=== PATIENT | female | born 1985 | race African-American/Black ===

== ENCOUNTER 2022-07-20 19:06 | Emergency (ER) | payer OTHER ==
[2022-07-20 19:18] VITALS: BP 129/74; PULSE 84; RESP 18; TEMP 98.8; BMI 37.8
== END 2022-07-20 22:14 | disposition home or self-care (01) ==
LOC: JER 19:06
DX: S91.201A Unspecified open wound of right great toe with damage to nail, initial encounter (principal); M79.674 Pain in right toe(s); Y93.6A Activity, physical games generally associated with school recess, summer camp and children
CPT/HCPCS: 73630-TC-RT-FY; 99283-25

== ENCOUNTER 2023-06-17 13:03 | Emergency (ER) | payer OTHER ==
[2023-06-17 13:15] VITALS: RESP 20; BMI 41.1
[2023-06-17] MEDS ORDERED: ALBUTEROL SO4 0.083% IH SOL 2.5 MG/3 ML VIAL.NEB. NEB ONE (15:03)
[2023-06-17] MEDS: ALBUTEROL SO4 0.042% IH SOL 1.25 MG/3 ML VIAL.NEB NEB ONE (15:15)
[2023-06-17 15:29] LABS: BASO % 1.2 % (0-2.0); EOS % 1.2 % (0-4.5); HEMOGLOBIN 8.2 GM/dL (10.7-15.3); LYMPH % 35.5 % (8-40); MCHC 30.5 g/dl (32.0-36.0); MEAN CELL VOLUME 65.6 fl (80-96); MONO % 8.4 % (3.8-10.2); NEUT % 53.7 % (42.8-82.8); PLATELET COUNT 471 10^3/uL (134-434); RBC 4.11 M/mm3 (3.60-5.2); RDW 18.5 % (11.6-15.6); WHITE BLOOD COUNT 6.6 K/mm3 (4.0-10.0)
[2023-06-17 15:49] LABS: POTASSIUM 4.3 mmol/L (3.5-5.1)
[2023-06-17 15:51] LABS: BLOOD UREA NITROGEN 8.8 mg/dL (7-18); CALCIUM 8.9 mg/dL (8.5-10.1)
[2023-06-17 15:52] LABS: ALBUMIN 3.3 g/dl (3.4-5.0)
[2023-06-17 15:55] LABS: CREATININE 0.9 mg/dL (0.55-1.3)
[2023-06-17 15:56] LABS: BILIRUBIN,TOTAL 0.4 mg/dL (0.2-1); TOT PROT 7.4 g/dl (6.4-8.2)
[2023-06-17 15:58] LABS: ANISOCYTOSIS 1+; MACROCYTOSIS 0
[2023-06-17 15:59] LABS: N-TERMINAL BNP 47.2 pg/ml (5-125)
[2023-06-17 18:34] VITALS: BP 113/68; PULSE 79; TEMP 98.2
[2023-06-17] MEDS ORDERED: predniSONE 20 MG TABLET (UD) ONE (19:27)
[2023-06-17] MEDS: predniSONE 20 MG TABLET (UD) PO ONE (19:32)
== END 2023-06-17 19:32 | disposition home or self-care (01) ==
LOC: JER 13:03
PROC: 3E0F7GC Introduction of Other Therapeutic Substance into Respiratory Tract, Via Natural or Artificial Opening (ICD-10-PCS; principal; 2023-06-17)
DX: R06.02 Shortness of breath (principal); R07.9 Chest pain, unspecified; R05.9 Cough, unspecified; D64.9 Anemia, unspecified; Z20.822 Contact with and (suspected) exposure to COVID-19
CPT/HCPCS: 0241U-QW; 36415; 71046-TC-FY; 71275-TC; 80053; 83880; 84484; 84703; 85025; 85379; 93005; 93010; 99285-25; Q9967

== ENCOUNTER 2023-06-21 18:44 | Emergency (ER) | payer OTHER ==
[2023-06-21 19:03] VITALS: BP 138/78; PULSE 100; RESP 18; TEMP 98.7; BMI 42.0
[2023-06-21] MEDS ORDERED: KETOROLAC TROMETHAMINE 30 MG/1 ML VIAL ONE ×2 (19:55→20:03)
[2023-06-21] MEDS ORDERED: METHOCARBAMOL 500 MG TABLET ONE (19:55)
[2023-06-21] MEDS ORDERED: ACETAMINOPHEN 500 MG TABLET (FP) ONE (19:55)
[2023-06-21] MEDS ORDERED: DEXAMETHASONE SOD PHOSPHATE 10 MG/1 ML VIAL ONE (19:55)
[2023-06-21] MEDS: ACETAMINOPHEN 500 MG TABLET (FP) PO ONE (20:09)
[2023-06-21] MEDS: METHOCARBAMOL 750 MG TABLET PO ONE (20:09)
[2023-06-21] MEDS: KETOROLAC TROMETHAMINE 30 MG/1 ML VIAL IM ONE (20:09)
[2023-06-21] MEDS: DEXAMETHASONE SOD PHOSPHATE 10 MG/1 ML VIAL IM ONE (20:09)
== END 2023-06-21 22:32 | disposition home or self-care (01) ==
LOC: JERFT 18:44
PROC: 3E0233Z Introduction of Anti-inflammatory into Muscle, Percutaneous Approach (ICD-10-PCS; principal; 2023-06-21)
DX: M54.2 Cervicalgia (principal); R51.9 Headache, unspecified; M25.552 Pain in left hip; S13.4XXA Sprain of ligaments of cervical spine, initial encounter; S46.012A Strain of muscle(s) and tendon(s) of the rotator cuff of left shoulder, initial encounter; M62.838 Other muscle spasm; V43.52XA Car driver injured in collision with other type car in traffic accident, initial encounter; Y92.410 Unspecified street and highway as the place of occurrence of the external cause
CPT/HCPCS: 72125-TC; 73030-TC-LT-FY; 99284-25

== ENCOUNTER 2024-01-11 12:56 | Inpatient (IN) | payer OTHER ==
[2024-01-11 14:00] LABS: BASO % 0.6 % (0-2.0); EOS % 1.7 % (0-4.5); HEMOGLOBIN 13.2 GM/dL (10.7-15.3); LYMPH % 19.5 % (8-40); MCH 28.8 pg (25.7-33.7); MCHC 32.9 g/dl (32.0-36.0); MEAN CELL VOLUME 87.5 fl (80-96); MEAN PLT VOLUME 7.7 fl (7.5-11.1); MONO % 10.3 % (3.8-10.2); NEUT % 67.9 % (42.8-82.8); PLATELET COUNT 322 10^3/uL (134-434); RBC 4.57 M/mm3 (3.60-5.2); RDW 23.5 % (11.6-15.6); WHITE BLOOD COUNT 7.3 K/mm3 (4.0-10.0)
[2024-01-11 14:33] LABS: ACTIVATED PTT 38.2 SECONDS (25.2-36.5); INR 1.16 (0.83-1.09)
[2024-01-11 15:05] LABS: CHLORIDE 104 mmol/L (98-107); POTASSIUM 4.7 mmol/L (3.5-5.1); SODIUM 140 mmol/L (136-145)
[2024-01-11 15:08] LABS: ALBUMIN 3.3 g/dl (3.4-5.0); ANION GAP 14 mmol/L (4-13); CALCIUM 8.7 mg/dL (8.5-10.1); CO2 23 mmol/L (21-32)
[2024-01-11 15:09] LABS: BLOOD UREA NITROGEN 8.1 mg/dL (7-18); GLUCOSE,RANDOM 80 mg/dL (74-106)
[2024-01-11 15:10] LABS: ANISOCYTOSIS 2+; MACROCYTOSIS 1+
[2024-01-11 15:11] LABS: CREATININE 0.9 mg/dL (0.55-1.3); SGOT/AST 29 U/L (15-37)
[2024-01-11 15:12] LABS: CHOLESTEROL 112 mg/dL (50-200)
[2024-01-11 15:13] LABS: TOT PROT 6.9 g/dl (6.4-8.2)
[2024-01-11 15:14] LABS: ALK PHOS 106 U/L (45-117); BILIRUBIN,TOTAL 0.5 mg/dL (0.2-1); HDL CHOLESTEROL 37 mg/dL (40-60); LDL CHOLESTEROL (ONLY SJRH) 64 mg/dL (5-100)
[2024-01-11 15:21] LABS: SGPT/ALT 19 U/L (13-61)
[2024-01-11] MEDS ORDERED: ASPIRIN COATED 81 MG TABLET.EC ONE (16:34)
[2024-01-11] MEDS: ASPIRIN COATED 81 MG TABLET.EC PO SCH (16:39)
[2024-01-11 17:36] LABS: URINE APPEARANCE CLEAR; URINE BILIRUBIN NEGATIVE (NEGATIVE); URINE COLOR YELLOW; URINE GLUCOSE (UA) NEGATIVE (NEGATIVE); URINE KETONE 80 (NEGATIVE); URINE LEUK ESTERASE NEGATIVE (NEGATIVE); URINE NITRITE NEGATIVE (NEGATIVE); URINE PROTEIN NEGATIVE (NEGATIVE); URINE UROBILINOGEN 0.2 mg/dL (0.2-1.0)
[2024-01-11 20:34] VITALS: BMI 42.9
[2024-01-11] MEDS: HEPARIN NA (PORCINE) 5,000 UNITS/ML 1ML VIAL SQ SCH (21:57)
[2024-01-11] MEDS: lamoTRIgine 100 MG TABLET PO SCH (21:58)
[2024-01-12] MEDS ORDERED: PATIENT'S OWN MEDICATION (NON-FORMULARY) (Bupropion Hcl [Bupropion Xl] 300 MG Tab.Er.24h) PO SCH (10:00)
[2024-01-12] MEDS: PANTOPRAZOLE 40 MG TABLET PO SCH (10:04)
[2024-01-12] MEDS: lamoTRIgine 100 MG TABLET PO SCH (21:21)
[2024-01-12] MEDS: ATORVASTATIN CA 80 MG TABLET (FP) PO SCH (21:21)
[2024-01-12] MEDS: HEPARIN NA (PORCINE) 5,000 UNITS/ML 1ML VIAL SQ SCH (21:29)
[2024-01-12] MEDS ORDERED: ATORVASTATIN CA 80 MG TABLET (FP) PO SCH (22:00)
[2024-01-13 01:30] VITALS: RESP 18
[2024-01-13] MEDS: ACETAMINOPHEN 325 MG TABLET (FP) PO PRN (07:07)
[2024-01-13] MEDS: PANTOPRAZOLE 40 MG TABLET PO SCH (10:52)
[2024-01-13] MEDS: ASPIRIN COATED 81 MG TABLET.EC PO SCH (10:52)
[2024-01-13 11:44] VITALS: BP 107/67; PULSE 71; TEMP 98.1
== END 2024-01-13 14:24 | disposition home or self-care (01) | DRG 69 ==
LOC: JER 12:56 → JERBED 15:15 → J6S 20:10 → J4W 01-12 15:45 → OBSVTOIN 01-13 09:10
PROVIDERS: ADMIT Internal Medicine; ATTEND Internal Medicine
DX: G45.8 Other transient cerebral ischemic attacks and related syndromes (principal); Z68.41 Body mass index [BMI] 40.0-44.9, adult; J45.909 Unspecified asthma, uncomplicated; F31.9 Bipolar disorder, unspecified; R00.2 Palpitations; I10 Essential (primary) hypertension; E66.01 Morbid (severe) obesity due to excess calories; Z98.84 Bariatric surgery status
CPT/HCPCS: 36415; 70450-TC; 70496-TC; 70498-TC; 70551-TC; 80053; 80061; 81003; 82550; 82962; 83036; 84460; 84484; 84703; 85025; 85610; 85730; 86850; 86900; 86901; 93005; 93010; 93306-TC; 93880-TC; 97116-GP; 97161-GP; 99285-25; G0378; J1644; Q9967